=== PATIENT | female | born 1995 | race African-American/Black ===

== ENCOUNTER 2017-06-18 16:36 | Inpatient (IN) | payer OTHER ==
[~2017-06-18] VITALS: Ht 157.5 cm; Wt 90.7 kg
--- NOTE | ~2017-06-18 | HC ---
[facility] [place] [address] CONSULTATION Name: SKINNY MOREAU Room #: 237-P [place] [facility] IN M.R.#: [id number] Admission: 06/18/17 Attend Phys: Faisal Linton DO Discharge: 06/19/17 Date of : [birth year] Report #: [id number] THIS REPORT FOR: //name// CC: Faisal Palomares DATE OF SERVICE: 06/18/2017 HISTORY OF PRESENT ILLNESS: This lady was admitted after an overdose involving Seroquel. The patient has past diagnoses that include schizophrenia. The patient had been experiencing increase in hallucinations recently. There is no obvious new or acute stressor. She hears voices telling her to do bad things to herself. She did take an overdose of Seroquel this time and acknowledged in the Emergency Room that she had intended to end her life. She has somewhat backed off a bit from this now, but family who is at bedside is still very concerned. The patient is still hallucinating at this time. PAST PSYCHIATRIC HISTORY: She has been psychiatrically hospitalized in the past including hospital stays in [facility]. There has been self-harm behavior before. She has been tapered from a higher dose of Seroquel because of sedation, and this is also the reason why she stopped risperidone and Latuda. She is currently seeing Dr. Justin Ryan with the [facility], and she sees a psychologist or a therapist there 2 times a month. PAST MEDICAL HISTORY: Asthma, nothing else significantly active other than the recent overdose. It appears the hypertension is resolving, which was related to the overdose. Family was also concerned about some diminished responsiveness on the part of the patient or "blackouts," but this was not seen by nursing greater part of the shift today. ALLERGIES: No medication allergies. ONLY SEASONAL ALLERGIES. CURRENT MEDICATIONS: Include IV fluids and ceftriaxone. COGNITIVE EXAMINATION: She is alert and oriented to person, place, situation and time. No significant deficits of short-term, long-term or intermediate memory as evidenced by her ability to recall elements of the past medical, psychiatric and social history. MENTAL STATUS EXAMINATION: -[place] female, casually dressed, fair grooming and hygiene. No involuntary movements. Slightly slow rate of speech. Appears childlike and regressed at times, experiencing auditory hallucinations, recent suicide attempt. Insight and judgment fair. SOCIAL HISTORY: She is the youngest of approximately 7 siblings. She is studying criminal justice at [employer]. She had to withdraw from school this [facility] [address] [place] [address] CONSULTATION Name: SKINNY MOREAU Room #: 237-P [place] IN M.R.#: [id number] Admission: 06/18/17 Attend Phys: Faisal Linton, Discharge: 06/19/17 Date of : [birth year] Report #: [id number] semester because of an increase in symptoms. She was living at home this semester. She did well last semester living on campus despite some bullying behaviors from the residential assistant. Her mother notes in the past besides the diagnosis of schizophrenia, she has been given diagnoses of having an attachment disorder and attention-seeking behavior and has sometimes formed relationships with inappropriate nonpeers such as administrators and others in the authority, likely in part because of bullying by peers. DIAGNOSES: AXIS I: Schizophrenia, simple. AXIS II: Deferred. AXIS III: Hypotension, electrolyte imbalance secondary to overdose and possible urinary tract infection, being treated. AXIS IV: Moderate. AXIS V: 20. RECOMMENDATIONS: The patient will need to be admitted to inpatient psychiatry for further observation, treatment and management. She is an intelligent lady, and she feels motivated to participate in groups. So, I think she will benefit from the [facility]. We will try to determine if a higher dose of Seroquel could be tolerated or else perhaps a different antipsychotic. <ELECTRONICALLY SIGNED> By: Jung Morrison MD 06/23/17 1657 1453 0215 Jung Morrison MD /nt
--- NOTE | ~2017-06-18 | EKG ---
[address] [place] [address] ELECTROCARDIOGRAM REPORT Name: SKINNY MOREAU Room #: 237-P ADM IN M.R.#: [id number] Admission: 06/18/17 Attend Phys: Faisal Linton DO Discharge: Date of : [birth year] Report #: [id number] THIS REPORT FOR: //name// 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 06/19/17 1232 05 05 Ahmet Strauss MD, FACC /EPI
--- NOTE | ~2017-06-18 | EKG ---
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
[2017-06-18 16:37] VITALS: BP 121/62
[2017-06-18 17:03] LABS: URINE BILIRUBIN NEGATIVE (Negative); URINE BLOOD NEGATIVE (Negative); URINE COLOR YELLOW; URINE GLUCOSE-RANDOM* NEGATIVE (Negative); URINE KETONES 1+ (Negative); URINE PROTEIN (DIPSTICK) NEGATIVE (Negative); URINE UROBILINOGEN 0.2 E.U./dl (0.2-1.0)
[2017-06-18 17:04] LABS: URINE LEUKOCYTES-REFLEX 1+ (Negative)
[2017-06-18 17:09] LABS: CASTS None Seen /LPF (None Seen); SQUAMOUS 4-10 Moderate /LPF (0-3); URINE RBC None Seen /HPF (0-2); URINE WBC-REFLEX 0-5 Rare /HPF (0-5)
[2017-06-18 17:10] LABS: CRYSTALS None Seen /LPF (None Seen)
[2017-06-18 17:13] LABS: AMP/METHAMP Negative (Negative); BARBITURATES Negative (Negative); BENZODIAZEPINES Negative (Negative); COCAINE Negative (Negative); METHADONE Negative (Negative); OPIATES Negative (Negative); PCP Negative (Negative); THC Negative (Negative)
[2017-06-18] MEDS ORDERED: ATIVAN1 MG PO (17:18)
[2017-06-18] MEDS ORDERED: SEROQUEL 100 M100 M1 PER TUBE (17:19)
[2017-06-18 17:32] LABS: HEMATOCRIT 37.3 % (37.0-47.0); HEMOGLOBIN 12.4 gm/dL (12.0-15.0); MCH 25.7 pg (26.0-34.0); MCHC 33.4 g/dL (28.0-37.0); RBC 4.84 mil/uL (4.20-5.00); RDW 15.2 % (10.5-14.5); WBC 6.8 thou/uL (4.0-11.0)
[2017-06-18 17:48] LABS: ANION GAP 12 mmol/L (7-16); BUN 10 mg/dL (7-18); CALCIUM 8.8 mg/dL (8.5-10.1); CHLORIDE 104 mmol/L (98-107); CO2 23 mmol/L (21-32); CREATININE 0.9 mg/dL (0.6-1.0); GLUCOSE 121 mg/dL (74-106); POTASSIUM 3.2 mmol/L (3.5-5.1); SALICYLATE < 2.8 mg/dL (2.8-20.0); SODIUM 139 mmol/L (136-145)
[2017-06-19] VITALS (11 sets, daily range): BP systolic 98–134; BP diastolic 63–111
[2017-06-19 10:52] LABS: HEMATOCRIT 36.4 % (37.0-47.0); HEMOGLOBIN 12.2 gm/dL (12.0-15.0); MCHC 33.6 g/dL (28.0-37.0); MCV 77.2 fL (80.0-100.0); RBC 4.72 mil/uL (4.20-5.00); RDW 15.7 % (10.5-14.5); WBC 6.9 thou/uL (4.0-11.0)
[2017-06-19 11:03] LABS: CALCIUM 8.5 mg/dL (8.5-10.1); CREATININE 0.7 mg/dL (0.6-1.0); POTASSIUM 3.9 mmol/L (3.5-5.1)
== END 2017-06-19 17:40 | DRG 918 ==
LOC: ER 16:36 → EROBS 22:03 → ICU 06-19 01:31
PROVIDERS: Emergency Medicine; Nurse Practitioner Family
DX: T43.592A Poisoning by other antipsychotics and neuroleptics, intentional self-harm, initial encounter (principal); R44.0 Auditory hallucinations; N39.0 Urinary tract infection, site not specified; F32.9 Major depressive disorder, single episode, unspecified; F41.9 Anxiety disorder, unspecified; J45.909 Unspecified asthma, uncomplicated; J30.2 Other seasonal allergic rhinitis; T50.905A Adverse effect of unspecified drugs, medicaments and biological substances, initial encounter; I95.9 Hypotension, unspecified; R40.0 Somnolence; I10 Essential (primary) hypertension; F20.9 Schizophrenia, unspecified; E87.8 Other disorders of electrolyte and fluid balance, not elsewhere classified; Z81.8 Family history of other mental and behavioral disorders

== ENCOUNTER 2018-11-22 10:51 | Emergency (ER) | payer OTHER ==
[~2018-11-22] VITALS: Ht 154.9 cm; Wt 106.6 kg
[~2018-11-22 10:51] MED LIST: ATIVAN1 MG PO; SEROQUEL 100 M100 M1 PER TUBE
[2018-11-22 11:47] LABS: ABSOLUTE NEUTROPHILS 2.3 thou/uL (1.4-8.2); EOSINOPHILS 3.3 % (0.0-3.0); HEMATOCRIT 40.5 % (37.0-47.0); HEMOGLOBIN 13.4 gm/dL (12.0-15.0); LYMPHOCYTES 32.1 % (24.0-44.0); MCH 25.6 pg (26.0-34.0); MCHC 33.1 g/dL (28.0-37.0); MCV 77.4 fL (80.0-100.0); MONOCYTES 8.3 % (1.0-8.0); PLATELET COUNT 252 thou/uL (150-400); POLYS 55.3 % (36.0-66.0); RBC 5.24 mil/uL (4.20-5.00); RDW 15.9 % (10.5-14.5); WBC 4.2 thou/uL (4.0-11.0)
[2018-11-22 11:52] LABS: URINE BILIRUBIN NEGATIVE (Negative); URINE BLOOD NEGATIVE (Negative); URINE CLARITY CLEAR; URINE COLOR YELLOW; URINE GLUCOSE-RANDOM* NEGATIVE (Negative); URINE KETONES NEGATIVE (Negative); URINE LEUKOCYTES-REFLEX TRACE (Negative); URINE NITRITE-REFLEX NEGATIVE (Negative); URINE PROTEIN (DIPSTICK) NEGATIVE (Negative); URINE UROBILINOGEN 0.2 E.U./dl (0.2-1.0)
[2018-11-22 12:00] LABS: CALCIUM 9.6 mg/dL (8.5-10.1); CREATININE 0.9 mg/dL (0.6-1.0); POTASSIUM 3.9 mmol/L (3.5-5.1)
[2018-11-22 12:04] LABS: AMP/METHAMP Negative (Negative); BARBITURATES Negative (Negative); BENZODIAZEPINES Negative (Negative); COCAINE Negative (Negative); METHADONE Negative (Negative); OPIATES Negative (Negative); PCP Negative (Negative)
[2018-11-22] MEDS ORDERED: CLONAZEPAM 1 MG1 M1 PO (13:19)
[2018-11-22] MEDS ORDERED: BUSPIRONE HCL7.5 MG PO (13:19)
[2018-11-22] MEDS ORDERED: ESCITALOPRAM OX20 MG PO (13:20)
[2018-11-22 17:16] VITALS: BP 133/78
== END 2018-11-22 17:16 | disposition short-term general hospital (02) ==
LOC: ER 10:51
PROVIDERS: Emergency Medicine
DX: R45.851 Suicidal ideations (principal); F32.9 Major depressive disorder, single episode, unspecified; F41.9 Anxiety disorder, unspecified; J45.909 Unspecified asthma, uncomplicated; Z79.899 Other long term (current) drug therapy

== ENCOUNTER 2019-03-30 04:05 | Emergency (ER) | payer OTHER ==
[~2019-03-30] VITALS: Ht 154.9 cm; Wt 45.4 kg
[2019-03-30 04:05] VITALS: BP 126/75
[~2019-03-30 04:05] MED LIST changes: +BUSPIRONE HCL7.5 MG PO; +CLONAZEPAM 1 MG1 M1 PO; +ESCITALOPRAM OX20 MG PO
[2019-03-30] MEDS ORDERED: VENTOLIN HFA 1818 GM INH (04:18)
== END 2019-03-30 04:40 | disposition home or self-care (01) ==
LOC: ER 04:05
DX: J45.909 Unspecified asthma, uncomplicated (principal); Z76.0 Encounter for issue of repeat prescription; F41.9 Anxiety disorder, unspecified; F32.9 Major depressive disorder, single episode, unspecified